=== PATIENT | male | born 1990 | race American Indian/Alaskan Native ===

== ENCOUNTER 2021-11-30 02:28 | Emergency (ER) | payer SELFPAY ==
[2021-11-30] MEDS ORDERED: NALOXONE 0.4 MG/1 ML INJ IV NR (02:49)
[2021-11-30] MEDS ORDERED: SODIUM CHLORIDE 0.9% 1000 ML 1,000 ML IV ONE (02:50)
[2021-11-30 03:15] LABS: Basophils % (Auto) 0.7 % (0.0-1.8); Eosinophils # (Auto) 0.3 K/mm3 (0.0-0.4); Eosinophils % (Auto) 4.4 % (0.0-4.3); Hematocrit 45.7 % (35.5-45.6); Hemoglobin 15.3 gm/dl (11.8-15.2); Lymphocytes # (Auto) 2.7 K/mm3 (1.2-5.4); Mean Corpuscular HGB Conc 33 % (32-34); Mean Corpuscular Volume 90 fl (84-94); Monocytes # (Auto) 0.5 K/mm3 (0.0-0.8); Monocytes % (Auto) 8.1 % (0.0-7.3); Platelet Count 197 K/mm3 (140-440); Red Cell Distribution Width 13.7 % (13.2-15.2)
[2021-11-30 03:30] LABS: Alanine Aminotransferase 36 units/L (7-56); Albumin 4.5 g/dL (3.9-5); BUN/Creatinine Ratio 11; Blood Urea Nitrogen 11 mg/dL (9-20); Calcium 8.8 mg/dL (8.4-10.2); Hemolysis Index 13
--- NOTE | 2021-11-30 04:16 | Emergency Department Report ---
<NELLYLINCOLN Li - Last Filed: 11/30/21 05:51> ED General Adult HPI - General Chief complaint: Altered Mental Status Stated complaint: AMS/ETOH Time Seen by Provider: 11/30/21 02:49 Source: EMS Mode of arrival: Stretcher Limitations: No Limitations - History of Present Illness Initial comments: This is a 31-year-old male found by police under several rope with legs in the middle of the road. EMS on the scene found the patient's pupil were pinpoint about 1 to 2 mm and reactive with snoring respiration. According to EMS when they arrived patient was unresponsive and moaning to pain stimulation only. Total of 04 Narcan IV was given in pubertal 3 mm reactive. At the time arrival patient is asleep but easily arousable with normal respiratory rate. - Related Data Allergies Allergy/AdvReac Type Severity Reaction Status Date / Time No Known Allergies Allergy Verified 11/30/21 07:26 ED Review of Systems Comment: Unobtainable due to pts medical conditions Constitutional: no symptoms reported ED Past Medical Hx - Past Medical History Previous Medical History?: No - Surgical History Past Surgical History?: No - Social History Smoking Status: Current Every Day Smoker Substance Use Type: Alcohol ED Physical Exam - General Limitations: No Limitations General appearance: in no apparent distress, other (ASLEEP) - Head Head exam: Present: atraumatic, normocephalic, normal inspection - Eye Eye exam: Present: normal appearance, PERRL, EOMI Pupils: Present: normal accommodation - ENT ENT exam: Present: normal exam, normal orophraynx - Neck Neck exam: Present: normal inspection - Respiratory Respiratory exam: Present: normal lung sounds bilaterally - Cardiovascular Cardiovascular Exam: Present: regular rate, normal rhythm - GI/Abdominal GI/Abdominal exam: Present: soft - Extremities Exam Extremities exam: Present: normal inspection. Absent: tenderness - Neurological Exam Neurological exam: Present: alert, altered, oriented X3, CN II-XII intact - Psychiatric Psychiatric exam: Present: normal affect, normal mood. Absent: homicidal ideation, suicidal ideation - Skin Skin exam: Present: normal color ED Course - Reevaluation(s) Reevaluation #1: 11/30/21 05:51 Patient is easily arousable; alcohol intoxication but is intact currently still waiting for urine drug screen. Patient's airway is maintained. I will go and send a my patient care to my oncoming colleague; Dr. Buchanan ED Medical Decision Making - Lab Data Result diagrams: 11/30/21 02:56 11/30/21 02:56 - EKG Data -: EKG Interpreted by Me (SINUS RHYTHM AT 81 BPM; ST ELEVATION BUT DUE TO EARLY REPOLARIZATION) EKG shows normal: sinus rhythm (QT/QTC AT 377/439) Rate: normal Critical Care Time: No ED Disposition Clinical Impression: Alcohol intoxication Qualifiers: Complication of substance-induced condition: with unspecified complication Qualified Code(s): F10.929 - Alcohol use, unspecified with intoxication, unspecified Disposition: 01 HOME / SELF CARE / HOMELESS Is pt being admited?: No Does the pt Need Aspirin: No Condition: Stable Additional Instructions: Cut back on your alcohol drinking to help your overall health as this could have contributed to your symptoms Increase your daily fluid to help your hydration It is important that you call and follow-up with your primary doctor in the next 3 to 5 days for progress Please do not hesitate to call or return to emergency room if your symptoms worsen. Referrals: JAZMINE MCKINLEY MD [Primary Care Provider] - 3-5 Days <BREANNA BUCHANAN - Last Filed: 11/30/21 13:08> ED Review of Systems ROS: Stated complaint: AMS/ETOH Other details as noted in HPI ED Course Vital Signs 11/30/21 11/30/21 11/30/21 02:32 03:00 03:16 Temperature 98.2 F Pulse Rate 84 80 76 Respiratory 20 17 14 Rate Blood Pressure 124/84 134/79 137/80 O2 Sat by Pulse 95 Oximetry 11/30/21 11/30/21 11/30/21 03:30 03:46 04:00 Temperature Pulse Rate 79 85 88 Respiratory 14 15 14 Rate Blood Pressure 129/83 129/71 137/78 O2 Sat by Pulse 96 94 Oximetry 11/30/21 11/30/21 11/30/21 04:16 04:30 04:46 Temperature Pulse Rate 80 81 82 Respiratory 14 16 14 Rate Blood Pressure 127/76 118/75 111/68 O2 Sat by Pulse 95 95 96 Oximetry 11/30/21 11/30/21 11/30/21 05:00 05:16 05:30 Temperature Pulse Rate 79 79 79 Respiratory 14 15 14 Rate Blood Pressure 125/76 113/68 120/77 O2 Sat by Pulse 93 93 92 Oximetry 11/30/21 11/30/21 11/30/21 05:46 06:00 06:30 Temperature Pulse Rate 77 79 Respiratory 14 13 Rate Blood Pressure 111/75 126/80 104/83 O2 Sat by Pulse 92 97 92 Oximetry 11/30/21 11/30/21 11/30/21 07:00 07:30 08:00 Temperature Pulse Rate Respiratory Rate Blood Pressure 100/55 102/54 99/60 O2 Sat by Pulse 91 95 98 Oximetry 11/30/21 11/30/21 11/30/21 08:30 09:00 09:30 Temperature Pulse Rate Respiratory Rate Blood Pressure 101/54 104/62 119/74 O2 Sat by Pulse 94 92 97 Oximetry 11/30/21 11/30/21 11/30/21 10:00 10:30 11:00 Temperature Pulse Rate Respiratory Rate Blood Pressure 116/81 111/79 126/87 O2 Sat by Pulse 97 93 95 Oximetry 11/30/21 11/30/21 11/30/21 11:30 12:00 12:30 Temperature Pulse Rate Respiratory Rate Blood Pressure 119/83 125/79 112/74 O2 Sat by Pulse 93 96 98 Oximetry - Reevaluation(s) Reevaluation #2: 11/30/21 09:31 Patient signed out to me at shift change at 6 AM with likely alcohol intoxication. Patient is being hydrated at this point. I observed patient still sleeping. We will continue to monitor patient labs and evaluated for possible discharge home. Reevaluation #3: 11/30/21 13:06 Pt finally woke up and wanted to go to work. I explain to him that he had too much alcohol last night when he was brought to the ED. Pt is stable enough to discharge home with warning to return if symptoms worsen ED Medical Decision Making - Lab Data Result diagrams: 11/30/21 02:56 11/30/21 02:56 Critical care attestation.: If time is entered above; I have spent that time in minutes in the direct care of this critically ill patient, excluding procedure time. ED Disposition Is pt being admited?: No Does the pt Need Aspirin: No Time of Disposition: 13:08
[2021-11-30] MEDS ORDERED: LACTATED RINGERS 1,000 ML IV ONE (04:39)
[2021-11-30 06:39] LABS: Bilirubin,Urine NEG (Negative); Blood,Urine NEG (Negative); Color,Urine Straw (Yellow); Hyaline Casts,Urine 1 /LPF; Mucus,Urine FEW /HPF; Protein,Urine <15 mg/dL mg/dL (Negative); RBC,Urine < 1.0 /HPF (0.0-6.0); Urobilinogen,Urine < 2.0 mg/dL (<2.0)
[2021-11-30 06:48] LABS: Amphetamine Screen,Urine PRESUMPTIVE POSITIVE; Benzodiazepines Screen,Urine PRESUMPTIVE NEGATIVE; Cannabinoid Screen,Urine PRESUMPTIVE POSITIVE; Cocaine Screen,Urine PRESUMPTIVE POSITIVE; Methadone Screen,Urine PRESUMPTIVE NEGATIVE; Opiate Screen,Urine PRESUMPTIVE NEGATIVE
--- NOTE | 2021-11-30 10:49 | Electrocardiograph Report ---
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
[2021-11-30 13:14] VITALS: BP 132/99
== END 2021-11-30 13:15 | disposition home or self-care (01) ==
LOC: ED 02:28
DX: F10.129 Alcohol abuse with intoxication, unspecified (principal); F17.200 Nicotine dependence, unspecified, uncomplicated; Z79.899 Other long term (current) drug therapy
CPT/HCPCS: 36415; 80053; 80307; 81001; 85025; 93005; 96360; 96361; 99283; J2310; J7030; J7120; 80320; G0480